=== PATIENT | male | born 1965 | race Two or more races ===

== ENCOUNTER 2020-03-07 14:02 | Outpatient (CLI) | payer MEDICAID ==
[~2020-03-07] VITALS: Ht 180.3 cm; Wt 79.8 kg
[2020-03-07 14:22] VITALS: BP 123/69
[2020-03-07] MEDS ORDERED: BISOPROLOL FUMAR5 MG PO (14:24)
[2020-03-07] MEDS ORDERED: PLAVIX75 MG ORAL (14:24)
[2020-03-07] MEDS ORDERED: ASPIRIN EC81 MG ORAL (14:24)
--- NOTE | 2020-03-07 18:00 | Consultation ---
DATE OF CONSULTATION: 03/07/2020 CHIEF COMPLAINT: Referral for chronic GERD and screening colonoscopy evaluation. PAST MEDICAL HISTORY: 1. Coronary artery disease status post cardiac stenting. 2. Hypertension. PAST SURGICAL HISTORY: History of cardiac stent placement. MEDICATIONS: Please see medication reconciliation list. FAMILY HISTORY: No history of GI malignancies. SOCIAL HISTORY: The patient denies any tobacco, alcohol, or drug abuse. ALLERGIES: No known drug allergies. REVIEW OF SYSTEMS: Positive for GERD. PHYSICAL EXAMINATION: VITAL SIGNS: Temperature 97.1, blood pressure 122/69, pulse 61, respirations 20. HEENT: Normocephalic and atraumatic. Sclerae anicteric. NECK: Supple. No evidence of obvious lymphadenopathy. CARDIOVASCULAR: Regular rate and rhythm. Plus S1 and S2. LUNGS: Clear to auscultation bilaterally. ABDOMEN: Positive bowel sounds. Soft and nontender. No rebound. No guarding. No peritoneal sign. EXTREMITIES: No cyanosis, no clubbing, no edema. ASSESSMENT AND PLAN: The patient is a 54-year-old male with need for screening colonoscopy, also need endoscopy for chronic GERD. Plan to be scheduled for both when authorization is obtained. The patient was told to stop the Plavix three days before the procedure. Alfredo Kilgore M.D. DR: Bea JOB#: [id number] CC:
== END 2020-03-07 16:02 | disposition home or self-care (01) ==
LOC: PAN 14:02
DX: K21.9 Gastro-esophageal reflux disease without esophagitis (principal); I25.10 Atherosclerotic heart disease of native coronary artery without angina pectoris; I11.9 Hypertensive heart disease without heart failure; Z95.5 Presence of coronary angioplasty implant and graft
CPT/HCPCS: G0463